=== PATIENT | male | born 1995 | race African-American/Black ===

== ENCOUNTER 2024-04-10 11:28 | Emergency (ER) | payer BC, SELFPAY ==
[2024-04-10] MEDS ORDERED: Ketorolac Tromethamine 30 MG (1 mL) VIAL ONE (12:12)
[2024-04-10] MEDS ORDERED: Bicillin LA 2.4 MILL.UNITS/4 ML SYRINGE IM SCH (12:30)
== END 2024-04-10 12:50 | disposition home or self-care (01) ==
LOC: CSHERS 11:28
DX: J02.0 Streptococcal pharyngitis (principal); A53.9 Syphilis, unspecified; F17.210 Nicotine dependence, cigarettes, uncomplicated
CPT/HCPCS: 96372; 99282; J0561; J1885

== ENCOUNTER 2024-04-21 18:49 | Emergency (ER) | payer BC ==
[2024-04-21] MEDS ORDERED: Acetaminophen 500 MG TAB ONE (19:19)
[2024-04-21 20:08] LABS: SARS-CoV-2 E Target Positive; SARS-CoV-2 N2 Target Positive; SARS-CoV-2 NAA Rapid Test DETECTED (NotDetected); SARS-CoV-2 RdRP gene Positive
== END 2024-04-21 19:47 | disposition home or self-care (01) ==
LOC: CSHERS 18:49
DX: U07.1 COVID-19 (principal); R42 Dizziness and giddiness; R03.0 Elevated blood-pressure reading, without diagnosis of hypertension; F17.210 Nicotine dependence, cigarettes, uncomplicated
CPT/HCPCS: 99284; U0002

== ENCOUNTER 2024-05-08 15:08 | Emergency (ER) | payer BC | END 2024-05-08 16:37 | disposition home or self-care (01) | LOC: CSHERS 15:08 | DX: L95.9 Vasculitis limited to the skin, unspecified (principal); E03.0 Congenital hypothyroidism with diffuse goiter; F17.210 Nicotine dependence, cigarettes, uncomplicated | CPT/HCPCS: 99283 ==

== ENCOUNTER 2024-08-02 19:42 | Emergency (ER) | payer BC ==
[2024-08-02 20:25] LABS: Bilirubin Neg (Negative); Blood, Urine Negative (Negative); Clarity Clear (Clear); Glucose, Urine (Dipstick) Normal (Negative); Ketone, Urine Negative (Negative); Leukocyte Negative (Negative); Nitrite Negative (Negative); Urobilinogen Normal mg/dL (Less than 2)
[2024-08-02 20:37] LABS: Protein, Urine (Dipstick) 15 mg/dl (Neg-Trace)
[2024-08-02 20:41] LABS: Bacteria/HPF None Seen HPF (None Seen); CAUTI Indications for Culture Pelvic or flank pain; RBC/HPF None Seen HPF (0-3); Squamous Epithelial None Seen HPF (0-3); WBC/HPF 0-3 HPF (0-3)
[2024-08-02 20:42] LABS: Urine Culture Reflex No No
[2024-08-03 06:09] LABS: Chlam.trachomatis by PCR,Urine Not Detected (NotDetected); GC N.gonorrhoeae PCR,UrineVOID Not Detected (NotDetected)
== END 2024-08-02 20:28 | disposition home or self-care (01) ==
LOC: CSHERS 19:42
DX: Z20.2 Contact with and (suspected) exposure to infections with a predominantly sexual mode of transmission (principal); F17.210 Nicotine dependence, cigarettes, uncomplicated
CPT/HCPCS: 81001; 87491; 87591; 99283

== ENCOUNTER 2024-09-24 19:33 | Emergency (ER) | payer BC ==
[2024-09-24] MEDS ORDERED: Dexamethasone 10 MG/ML VIAL ONE (21:02)
[2024-09-24] MEDS ORDERED: Ketorolac Tromethamine 30 MG (1 mL) VIAL ONE (21:02)
== END 2024-09-24 21:18 | disposition home or self-care (01) ==
LOC: CSHERS 19:33
DX: J01.90 Acute sinusitis, unspecified (principal); F17.210 Nicotine dependence, cigarettes, uncomplicated
CPT/HCPCS: 99283; J1100; J1885

== ENCOUNTER 2025-07-02 12:06 | Emergency (ER) | payer BC, OTHER, SELFPAY ==
[2025-07-02] MEDS ORDERED: Ketorolac Tromethamine 30 MG (1 mL) VIAL ONE (12:34)
[2025-07-02] MEDS ORDERED: Ibuprofen 200 MG TAB ONE (12:44)
== END 2025-07-02 13:05 | disposition home or self-care (01) ==
LOC: CSHERS 12:06
DX: L03.90 Cellulitis, unspecified (principal); F17.210 Nicotine dependence, cigarettes, uncomplicated
CPT/HCPCS: 99282; J1885

== ENCOUNTER 2025-07-04 | Emergency (ER) | payer OTHER | END 2025-07-04 01:35 | disposition home or self-care (01) | LOC: CSHERS | DX: L03.314 Cellulitis of groin (principal); L73.9 Follicular disorder, unspecified; Z79.2 Long term (current) use of antibiotics | CPT/HCPCS: 99283 ==